=== PATIENT | female | born 1950 | race Caucasian/White ===

== ENCOUNTER 2019-06-05 00:31 | Day surgery (SDC) | payer OTHER, MEDICARE, SELFPAY ==
[2019-06-04 11:42] VITALS: BMI 28.8
[2019-06-05] VITALS (8 sets, daily range): BP systolic 109–155; BP diastolic 52–70; PULSE 62–82; RESP 16–17; TEMP 37.2–37.9; O2SAT 96–99; BMI 28.2
--- NOTE | 2019-06-05 09:50 | SUR.PREOP ---
ARRIVES AMBULATORY TO [facility] W/ AT SIDE FOR SCHEDULED LHC W/ DR. JOHNSON. ORIENTED TO ROOM AND PLAN, PROCEDURE. QUESTIONS ANSWERED. VOICED UNDERSTANDING. A&OX3, DENIES PAIN OR SOB. VS OBTAINED, IV STARTED, LABS COLLECTED AND SENT, CONSENT SIGNED, PULSES MARKED, SKIN PREP COMPLETED. WILL CONTINUE TO MONITOR.
[2019-06-05 10:06] LABS: Basophils Percent Auto 0.7 % (0.2-1.2); Eosinophils Absolute Auto 0.1 K/mm3 (0-0.3); Eosinophils Percent Auto 2.3 % (0-4.4); Hematocrit 41.2 % (37.0-47.0); Hemoglobin 13.2 g/dL (12.0-15.0); Immature Granulocyte Absolute 0.01 K/mm3 (0.00-0.031); Immature Granulocyte Percent A 0.2 % (0-0.5); Lymphocytes Absolute Auto 2.19 K/mm3 (0.9-3.2); Mean Corpuscular Hemoglobin 28.7 pg (26-34); Mean Corpuscular Volume 89.6 fl (80-100); Mean Platelet Volume 10.1 fl (7.4-10.4); Monocytes Absolute Auto 0.4 K/mm3 (0.1-0.6); Monocytes Percent Auto 7.3 % (2.6-8.5); Neutrophils Absolute Auto 2.8 K/mm3 (1.3-6.7); Neutrophils Percent Auto 50.5 % (45.5-73.1); Platelet Count Result 206 k/mm3 (150-375); Red Cell Distribution Width 13.2 % (11.5-14.5); White Blood Count 5.6 K/mm3 (4.5-10.0)
[2019-06-05 11:26] LABS: Blood Urea Nitrogen 15 mg/dL (7-17); Calcium 8.8 mg/dL (8.4-10.2); Carbon Dioxide 25 mmol/L (22-30); Chloride 104 mmol/L (98-107); Estimated CRCL calculation 110 ml/min; Estimated Glomerular Filt Rate > 60; Glucose 123 mg/dL (65-105); Potassium 4.1 mmol/L (3.4-5.0); Sodium 137 mmol/L (137-145)
--- NOTE | 2019-06-05 11:45 | WPDMODSED ---
Moderate Sedation Note-Pt Data Patient Data Allergies Allergy/AdvReac Type Severity Reaction Status Date / Time Sulfa (Sulfonamide Allergy Mild Rash Verified 12/06/17 02:42 Antibiotics) valdecoxib Allergy Unknown Unknown Verified 06/05/19 10:14 hydrocodone [From Vicodin] Allergy Unknown Verified 06/05/19 10:14 meperidine [From Demerol] Allergy Nausea Verified 06/05/19 10:31 tramadol Allergy Unknown Verified 06/05/19 10:14 perfume AdvReac Difficulty Verified 06/05/19 10:14 Breathing Home Medications Medication Instructions Recorded Confirmed Type albuterol sulfate 2 puff INHALATION QID PRN 06/04/19 06/04/19 History amlodipine-benazepril [Lotrel] 1 cap PO HS 06/04/19 06/04/19 History aspirin [Adult Low Dose Aspirin] 81 mg PO DAILY 06/04/19 06/04/19 History melatonin 5 mg PO HS PRN 06/04/19 06/04/19 History Current Medications: Active Medications Sodium Chloride (Normal Saline Iv) 500 mls @ 100 mls/hr IV CONT .Q5H [facility] Sedation/Anesthesia: No previous sedation/anesthesia problems (including family history). [facility] Family History Family History (Updated 06/04/19 @ 15:02 by Niurka Bowles RN) Mother Diabetes mellitus CAD (coronary artery disease) Cerebrovascular accident Hypertension Father CAD (coronary artery disease) Colon cancer Sibling Diabetes mellitus Hypertension Social History Social History Gender identity (if verbalized by the patient): Female Mod Sed Physical Exam Physical Exam Pre Procedural Exam: Normal: Airway Hours since solid foods: 10 Hours since liquid intake: 10 Internal Medicine - PN: Obj Da Vital Signs Vital Signs: Vital Signs - 24 hr 06/05/19 10:10 Temperature 37.2 C Pulse Rate 65 Respiratory Rate 17 Blood Pressure 155/70 H Pulse Oximetry 97 Meds/Results Medications: Active Medications Generic Name Dose Route Start Last Admin Trade Name Freq PRN Reason Stop Dose Admin Sodium Chloride 500 mls @ 100 mls/hr 06/05/19 06:15 Normal Saline Iv IV CONT .Q5H [facility] Labs CBC & Chem 7: 06/05/19 09:58 06/05/19 11:06 Labs: Laboratory Results - last 24 hr 06/05/19 06/05/19 09:58 11:06 WBC 5.6 RBC 4.60 Hgb 13.2 Hct 41.2 MCV 89.6 MCH 28.7 MCHC 32.0 RDW 13.2 Plt Count 206 MPV 10.1 Immature Gran % (Auto) 0.2 Neut % (Auto) 50.5 Lymph % (Auto) 39.0 [place] % (Auto) 7.3 Eos % (Auto) 2.3 Baso % (Auto) 0.7 Lymph # (Auto) 2.19 [place] # (Auto) 0.4 Eos # (Auto) 0.1 Baso # (Auto) 0.0 Abs Immat Gran (auto) 0.01 Absolute Neuts (auto) 2.8 Absolute Nucleated RBC 0.0 Nucleated RBC % 0.0 Sodium 137 Potassium 4.1 Chloride 104 Carbon Dioxide 25 BUN 15 Creatinine 0.50 L Estim Creat Clear Calc 110 Estimated GFR > 60 Glucose 123 H Calcium 8.8 ASA Classification/Sedation ASA Classification/Sedation Risks: Risks, benefits and alternatives explained and patient/family accepted plan for sedation. Patient re-evaluated immediately prior to sedation.
--- NOTE | 2019-06-05 12:10 | WPDCARDPROC ---
Cardiac Cath Procedure Note Date of procedure:: 06/05/19 Performing physician:: Alvino Husain MD Indication:: chest pain Brief clinical history:: 68-year-old female with hypertension ,dyslipidemia was referred by Dr. Miranda for coronary angiogram in the setting of chest discomfort. Patient had pharmacological MPI on 12/25/2018 which reportedly showed EKG findings suggestive of ischemia with normal imaging and normal LVEF. Benefits and risks of the procedure were discussed with patient and informed consent was taken for the procedure. Procedure Procedure note:: LEFT HEART CATHETERIZATION AND CORONARY ANGIOGRAM REPORT PROCEDURES PERFORMED: 1. Left heart catheterization- Selective left and right coronary angiogram; left ventriculogram and hemodynamic assessment 2. Selective right common femoral angiogram and deployment of Angio-Seal hemostatic device 3. Moderate sedation-CPT code 86159 MODERATE SEDATION: Midazolam 2 mg; fentanyl 50 mcg; Start time 1155 , Stop time 1207 ; Total [id number] time 12 minutes; Martha Rene RN was trained observer for moderate sedation. ACCESS SITE: Right common femoral artery PROCEDURE NOTE: After obtaining informed consent, patient was brought to catheterization lab and prepped and draped in a usual sterile manner. After local anesthesia with lidocaine, right common femoral artery access was taken with micropuncture needle followed by insertion of a 6 American sheath. Selective left and right coronary angiogram was performed using 5 American JL4 and JR4 catheters respectively. Orthogonal views were taken. Next, a 5 American JR4 catheter was advanced in the LV cavity and was flushed with normal saline. LV pressure measurement was performed. After this, left ventriculogram was performed using minimal dye as low pressures. The catheter was flushed again, and gradient across the aortic valve was measured on the pullback of the catheter. Finally, selective right common femoral angiogram was performed followed by successful deployment of Angio-Seal vascular closure device. Patient tolerated procedure well without any immediate procedure related complications. of note, patient was hypertensive during the procedure and received 10 mg of IV hydralazine. FINDINGS: LEFT MAIN CORONARY:Main large caliber, short vessel, no significant focal stenosis seen. The vessel bifurcates into tortuous LAD and left circumflex branches. LEFT ANTERIOR DESCENDING ARTERY: The LAD is a large caliber, tortuous vessel with minor plaque at the ostium. The vessel tapers distally and reaches the LV apex. No significant focal stenosis seen. Diagonal branch is a small to medium-sized vessel without significant focal stenosis. LEFT CIRCUMFLEX ARTERY: The left circumflex artery is a large-sized vessel, tortuous, and essentially continues as OM branch without significant focal stenosis. RIGHT CORONARY ARTERY: The RCA is a very large caliber , Tortuous, dominant vessel, gives rise to PD and PLV branches without significant focal stenosis. LEFT VENTRICULOGRAM: Preserved LV systolic function, ejection fraction more than 70%. HEMODYNAMIC ASSESSMENT: Opening pressure 133/92 mmHg , closing pressure 167/61 mmHg , LVEDP 24 , no significant gradient across aortic valve on the pullback of pigtail catheter. RIGHT COMMON FEMORAL ARTERY: Patent CONCLUSIONS: 1. No significant obstructive CAD; tortuous coronary arteries. 2. Preserved LV systolic function, ejection fraction more than 70%; LVEDP elevated at 24 mmHg. 3. Systemic hypertension PLAN/RECOMMENDATIONS: optimal medical treatment and risk factor modification including optimal blood pressure control. Follow up with Dr. Miranda. This document was completed by using [employer] Fluency Direct speech recognition software, therefore, director of distance learning variances may occur.
== END 2019-06-05 15:45 | disposition home or self-care (01) ==
PROVIDERS: Internal Medicine Gastroenterology; PCP Family Medicine; Visit Provider Internal Medicine Cardiovascular Disease
PROC: 4A023N7 Measurement of Cardiac Sampling and Pressure, Left Heart, Percutaneous Approach (ICD-10-PCS; CPT 93452; principal; 2019-06-05 11:30)
PROC: 0DJ08ZZ Inspection of Upper Intestinal Tract, Via Natural or Artificial Opening Endoscopic (ICD-10-PCS; CPT 43235; principal; 2020-03-26 22:00)
DX: R93.1 Abnormal findings on diagnostic imaging of heart and coronary circulation (principal); R07.9 Chest pain, unspecified; I10 Essential (primary) hypertension; J45.909 Unspecified asthma, uncomplicated; Z79.82 Long term (current) use of aspirin; Z87.891 Personal history of nicotine dependence
CPT/HCPCS: 36415; 80048; 85025; 93458; C1760; C1887; C1894; G0269; J0360; J1644; J2250; J3010; J7040

== ENCOUNTER 2020-03-26 18:24 | Day surgery (SDC) | payer OTHER, MEDICARE, SELFPAY ==
[2020-03-26] VITALS (26 sets, daily range): BP systolic 69–185; BP diastolic 18–88; PULSE 68–90; RESP 16–25; TEMP 36.3–36.9; O2SAT 89–100
--- NOTE | ~2020-03-26 | XR_ITS ---
EXAMINATION: XR chest 2V DATE: 03/26/2020 19:01 INDICATION: Phleboliths in throat, unable to swallow and difficulty breathing. TECHNIQUE: PA and lateral views of the chest were obtained. COMPARISON: Chest radiograph dated 07/24/2016 FINDINGS: Unchanged symmetric mild hyperexpansion of the lungs. Again seen are multiple small calcified nodules in the right lower lung zone consistent with old granulomatous disease. No other airspace opacities, pulmonary edema, pleural effusion or pneumothorax. The cardiomediastinal silhouette is normal. Mild thoracic spondylosis. IMPRESSION: 1. No acute cardiopulmonary disease. Reviewed, dictated and finalized at location . F MEDICAL PHYSICIST
--- NOTE | 2020-03-26 18:53 | ED.SKABFB ---
HPI - Skin/Abscess/Foreign Bdy General Chief complaint: Skin/Abscess/Foreign Body <Leticia Delong PA-C - Last Filed: 03/26/20 20:23> Stated complaint: FB GI <YURIDIA Milligan Last Filed: 03/26/20 20:23> Time Seen by Provider: 03/26/20 18:32 <YURIDIA Milligan Last Filed: 03/26/20 20:23> Source: patient <YURIDIA Milligan Last Filed: 03/26/20 20:23> Mode of arrival: ambulatory <YURIDIA Milligan Last Filed: 03/26/20 20:23> Limitations: no limitations <YURIDIA Milligan Last Filed: 03/26/20 20:23> History of Present Illness HPI narrative: This is a 69 year old female that presents to the ER for food impaction. Reports she was eating brussel sprouts and chicken. Reports she swallowed a piece of chicken and it felt like it got stuck in her esophagus. Reports this was about 1 hour ago. Reports since she has been vomiting and spitting up her saliva. She has not tried to eat or drink anything since. Reports some mid sternal discomfort that feels like gas. Denies history of similar occurrences. <Leticia Delong PA-C - Last Filed: 03/26/20 20:23> Related Data Home medications: Home Medications Medication Instructions Recorded Confirmed albuterol sulfate 2 puff INHALATION QID PRN 06/04/19 06/04/19 amlodipine-benazepril [Lotrel] 1 cap PO HS 06/04/19 06/04/19 aspirin [Adult Low Dose Aspirin] 81 mg PO DAILY 06/04/19 06/04/19 melatonin 5 mg PO HS PRN 06/04/19 06/04/19 <YURIDIA Milligan Last Filed: 03/26/20 20:23> Allergies/Adverse reactions: Allergies Allergy/AdvReac Type Severity Reaction Status Date / Time Sulfa (Sulfonamide Allergy Mild Rash Verified 12/06/17 02:42 Antibiotics) valdecoxib Allergy Unknown Unknown Verified 06/05/19 10:14 hydrocodone [From Vicodin] Allergy Unknown Verified 06/05/19 10:14 meperidine [From Demerol] Allergy Nausea Verified 06/05/19 10:31 tramadol Allergy Unknown Verified 06/05/19 10:14 perfume AdvReac Difficulty Verified 06/05/19 10:14 Breathing <Leticia Delong PA-C - Last Filed: 03/26/20 20:23> Review of Systems Review of Systems: Narrative: CONSTITUTIONAL: Denies fever CARDIOVASCULAR: Reports chest pain RESPIRATORY: Denies dyspnea. GASTROINTESTINAL: Reports nausea, vomiting <Leticia Delong PA-C - Last Filed: 03/26/20 20:23> All systems reviewed & are unremarkable except as noted in HPI and below <Leticia Delong PA-C - Last Filed: 03/26/20 20:23> PMFSH Past Medical History Medical History: Medical History (Updated 03/26/20 @ 19:51 by Leticia Delong PA-C) History of gastroesophageal reflux (GERD) History of hypertension <Leticia Delong PA-C - Last Filed: 03/26/20 20:23> Surgical History Surgical History: Surgical History (Updated 03/26/20 @ 18:58 by Leticia Delong PA-C) History of cardiac catheterization History of colonoscopy <Leticia Delong PA-C - Last Filed: 03/26/20 20:23> Family History Family History: Family History (Updated 06/04/19 @ 15:02 by Niurka Bowles RN) Mother Diabetes mellitus CAD (coronary artery disease) Cerebrovascular accident Hypertension Father CAD (coronary artery disease) Colon cancer Sibling Diabetes mellitus Hypertension <Leticia Delong PA-C - Last Filed: 03/26/20 20:23> Social History Social History: Social History Gender identity (if verbalized by the patient): Female <Leticia Delong PA-C - Last Filed: 03/26/20 20:23> Exam Narrative: Exam Narrative: GENERAL: Uncomfortable, well-nourished, actively belching HEAD: Normocephalic, atraumatic. EYES: EOMI. ENT: Mucous membranes moist. Oropharynx without tonsillar hypertrophy exudate or other lesions. NECK: Supple. No adenopathy or masses. CHEST: Clear to auscultation. No respiratory distress. No wheezes rales or rhonchi HEART: Regular rate and rhythm. No murmur heard. Normal peripheral pulses. ABDOMEN: Soft, nontender, nond
[2020-03-26 19:02] LABS: Basophils Percent Auto 0.5 % (0.2-1.2); Eosinophils Absolute Auto 0.2 K/mm3 (0-0.3); Eosinophils Percent Auto 2.6 % (0-4.4); Hemoglobin 10.6 g/dL (12.0-15.0); Immature Granulocyte Absolute 0.01 K/mm3 (0.00-0.031); Immature Granulocyte Percent A 0.2 % (0-0.5); Lymphocytes Absolute Auto 1.68 K/mm3 (0.9-3.2); Lymphocytes Percent Auto 27.1 % (18.3-44.2); Mean Corpuscular HGB Conc 33.1 g/dl (32-36); Mean Corpuscular Hemoglobin 29.7 pg (26-34); Mean Corpuscular Volume 89.6 fl (80-100); Mean Platelet Volume 9.6 fl (7.4-10.4); Monocytes Absolute Auto 0.4 K/mm3 (0.1-0.6); Monocytes Percent Auto 6.6 % (2.6-8.5); Neutrophils Absolute Auto 3.9 K/mm3 (1.3-6.7); Platelet Count Result 170 k/mm3 (150-375); Red Blood Count 3.57 M/mm3 (4.2-5.4); White Blood Count 6.2 K/mm3 (4.5-10.0)
[2020-03-26] MEDS: GLUCAGON FOR INJ 1 MG VIAL IM (19:06)
[2020-03-26] MEDS: NITROGLYCERIN SL 0.4 MG TABLET SUBLINGUAL (19:06)
[2020-03-26] MEDS: ONDANSETRON INJ 4 MG/2 ML VIAL IV PUSH (19:06)
[2020-03-26 19:15] LABS: Alanine Aminotransferase 20 U/L (4-35); Albumin Level 4.6 g/dL (3.5-5.1); Alkaline Phosphatase 82 U/L (38-126); Anion Gap 12 mmol/L (8-16); Aspartate Amino Transferase 23 U/L (14-36); Bilirubin,Total 0.7 mg/dL (0.2-1.3); Blood Urea Nitrogen 19 mg/dL (7-17); Calcium 8.9 mg/dL (8.4-10.2); Carbon Dioxide 23 mmol/L (22-30); Chloride 104 mmol/L (98-107); Estimated CRCL calculation 81 ml/min; Estimated Glomerular Filt Rate > 60; Glucose 121 mg/dL (65-105); Sodium 139 mmol/L (137-145)
--- NOTE | 2020-03-26 19:22 | PC.NURSE ---
patient states no change in symptoms after meds. will discuss with provider. CXR resulted. waiting for further orders from provider.
--- NOTE | 2020-03-26 19:32 | PC.NURSE ---
provider gave patient a sprite as PO trial. will monitor.
--- NOTE | 2020-03-26 19:58 | PC.NURSE ---
patient to go to GI lab tonight for possible foreign body removal. patient is aware. patient is aware she is NPO. unable to swallow her saliva still. at bedside. on BP and O2 monitors. call light in reach.
--- NOTE | 2020-03-26 20:46 | PC.NURSE ---
waiting for GI lab. states she does have less chest discomfort. texting on phone. on BP and O2 monitor. spouse still here. denies needs. aware of current treatment plan.
--- NOTE | 2020-03-26 21:28 | WPDANESEPPF ---
Anes - Initial Pre Proc Eval Date/Time: 03/26/20 21:28 Pre Op Diagnosis: FB GI Patient Data Age: 69 Gender: F Height: 1.78 m Weight: 90.9 kg Last Vital Signs Temp 36.9 C 03/26/20 18:31 Pulse 85 03/26/20 18:31 Resp 24 H 03/26/20 18:31 BP 169/65 H 03/26/20 20:32 Pulse Ox 97 03/26/20 20:45 Allergies Allergy/AdvReac Type Severity Reaction Status Date / Time Sulfa (Sulfonamide Allergy Mild Rash Verified 12/06/17 02:42 Antibiotics) valdecoxib Allergy Unknown Unknown Verified 06/05/19 10:14 hydrocodone [From Vicodin] Allergy Unknown Verified 06/05/19 10:14 meperidine [From Demerol] Allergy Nausea Verified 06/05/19 10:31 tramadol Allergy Unknown Verified 06/05/19 10:14 perfume AdvReac Difficulty Verified 06/05/19 10:14 Breathing Home Medications Medication Instructions Recorded Confirmed Type albuterol sulfate 2 puff INHALATION QID PRN 06/04/19 06/04/19 History amlodipine-benazepril [Lotrel] 1 cap PO HS 06/04/19 06/04/19 History aspirin [Adult Low Dose Aspirin] 81 mg PO DAILY 06/04/19 06/04/19 History melatonin 5 mg PO HS PRN 06/04/19 06/04/19 History Laboratory Tests 03/26/20 03/26/20 18:52 18:52 WBC 6.2 K/mm3 K/mm3 (4.5-10.0) RBC 3.57 M/mm3 L M/mm3 (4.2-5.4) Hgb 10.6 g/dL L g/dL (12.0-15.0) Hct 32.0 % L % (37.0-47.0) MCV 89.6 fl fl (80-100) MCH 29.7 pg pg (26-34) MCHC 33.1 g/dl g/dl (32-36) RDW 13.0 % % (11.5-14.5) Plt Count 170 k/mm3 k/mm3 (150-375) MPV 9.6 fl fl (7.4-10.4) Immature Gran % (Auto) 0.2 % % (0-0.5) Neut % (Auto) 63.0 % % (45.5-73.1) Lymph % (Auto) 27.1 % % (18.3-44.2) Will % (Auto) 6.6 % % (2.6-8.5) Eos % (Auto) 2.6 % % (0-4.4) Baso % (Auto) 0.5 % % (0.2-1.2) Lymph # (Auto) 1.68 K/mm3 K/mm3 (0.9-3.2) Will # (Auto) 0.4 K/mm3 K/mm3 (0.1-0.6) Eos # (Auto) 0.2 K/mm3 K/mm3 (0-0.3) Baso # (Auto) 0.0 K/mm3 K/mm3 (0.0-0.1) Abs Immat Gran (auto) 0.01 K/mm3 K/mm3 (0.00-0.031) Absolute Neuts (auto) 3.9 K/mm3 K/mm3 (1.3-6.7) Absolute Nucleated RBC 0.0 K/mm3 K/mm3 (0.0-0.012) Nucleated RBC % 0.0 % % (0.0-0.2) Sodium 139 mmol/L mmol/L (137-145) Potassium 4.0 mmol/L mmol/L (3.4-5.0) Chloride 104 mmol/L mmol/L (98-107) Carbon Dioxide 23 mmol/L mmol/L (22-30) Anion Gap 12 mmol/L mmol/L (8-16) BUN 19 mg/dL H mg/dL (7-17) Creatinine 0.70 mg/dL mg/dL (0.7-1.0) Estim Creat Clear Calc 81 ml/min ml/min Estimated GFR > 60 (59 - ) Glucose 121 mg/dL H mg/dL (65-105) Calcium 8.9 mg/dL mg/dL (8.4-10.2) Total Bilirubin 0.7 mg/dL mg/dL (0.2-1.3) AST 23 U/L U/L (14-36) ALT 20 U/L U/L (4-35) Alkaline Phosphatase 82 U/L U/L (38-126) Total Protein 8.0 g/dL g/dL (6.3-8.2) Albumin 4.6 g/dL g/dL (3.5-5.1) Other Studies: cath 06/21: CONCLUSIONS: 1. No significant obstructive CAD; tortuous coronary arteries. 2. Preserved LV systolic function, ejection fraction more than 70%; LVEDP elevated at 24 mmHg. 3. Systemic hypertension Patient hx anesthesia problems: none Family hx anesthesia problems: none PMFSH Past Medical History Medical History (Updated 03/26/20 @ 21:30 by Robe Mae MD) Angina pectoris Anxiety Asthma Depression History of gastroesophageal reflux (GERD) History of hypertension HTN (hypertension) Hypercholesterolemia Osteoarthritis Surgical History Surgical History (Updated 03/26/20 @ 18:58 by Leticia Delong PA-C) History of cardiac catheterization History of colonoscopy Family History Family History (Updated 06/04/19 @ 15:02 by Niurka Bowles RN) Mother Diabetes mellitus CAD (coronary artery disease) Cerebrovascular accident Hypertension Father CAD (coronary artery disease) Co
--- NOTE | 2020-03-26 21:40 | PC.NURSE ---
GI lab here. patient released to their care. all belonging sent with .
--- NOTE | 2020-03-26 21:40 | PC.NURSE ---
report given to RN at GI lab. patient and spouse aware.
[2020-03-26] MEDS: LACTATED RINGERS 1,000 ML 150 ML IV CONT (21:50)
--- NOTE | 2020-03-26 22:12 | WPDGICN ---
Assessment and Plan Assessment and plan (1) Food impaction of esophagus: Qualifiers: Encounter type: initial encounter Qualified Code(s): T18.128A - Food in esophagus causing other injury, initial encounter Code(s): T18.128A - Food in esophagus causing other injury, initial encounter Status: Acute Assessment and Plan: Patient has a history of a food impaction this evening has ongoing dysphagia suggestive of esophageal narrowing. Her heartburn suggest underlying acid reflux disease. Currently now on no specific medications. Plan is for EGD. Further recommendations regarding treatment of anti-reflux measures will be given after endoscopy. (2) Dysphagia: Code(s): R13.10 - Dysphagia, unspecified Status: Acute (3) Heartburn: Code(s): R12 - Heartburn Status: Acute GI Consult Note Consult date/time: 03/26/20 22:12 HPI: Ximena Bess is a 69 year old femaleSeen in evaluation at the request of the ER. Patient was eating chicken dinner at 6:30 a.m. and was abruptly unable to eat or swallowing additional food. She presented to the emergency room with food impaction. Patient states she has had intermittent difficulty swallowing solids for some time. Food will hang up in the mid substernal chest. This typically happens with more solid foods compared to liquid foods. She does have an ongoing history of heartburn. She does not take specific medications aside from antacids. She also takes apple cider vinegar. Patient denies any bleeding or weight loss. 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 Review of Systems Review of Systems: All systems reviewed & are unremarkable except as noted in HPI and below [facility] Past Medical History Medical History (Updated 03/26/20 @ 22:14 by Himanshu Louise MD) Angina pectoris Anxiety Asthma Depression History of gastroesophageal reflux (GERD) History of hypertension HTN (hypertension) Hypercholesterolemia Osteoarthritis Surgical History Surgical History (Updated 03/26/20 @ 18:58 by Leticia Delong PA-C) History of cardiac catheterization History of colonoscopy Family History Family History (Updated 06/04/19 @ 15:02 by Niurka Bowles RN) Mother Diabetes mellitus CAD (coronary artery disease) Cerebrovascular accident Hypertension Father CAD (coronary artery disease) Colon cancer Sibling Diabetes mellitus Hypertension Social History Social History Gender identity (if verbalized by the patient): Female Meds Home Medications and Allergies Home Medications Medication Instructions Recorded Confirmed Type albuterol sulfate 2 puff INHALATION QID PRN 06/04/19 06/04/19 History amlodipine-benazepril [Lotrel] 1 cap PO HS 06/04/19 06/04/19 History aspirin [Adult Low Dose Aspirin] 81 mg PO DAILY 06/04/19 06/04/19 History melatonin 5 mg PO HS PRN 06/04/19 06/04/19 History Allergies Allergy/AdvReac Type Severity Reaction Status Date / Time Sulfa (Sulfonamide Allergy Mild Rash Verified 03/26/20 21:50 Antibiotics) valdecoxib Allergy Unknown Unknown Verified 03/26/20 21:50 hydrocodone [From Vicodin] Allergy Unknown Verified 03/26/20 21:50 meperidine [From Demerol] Allergy Nausea Verified 03/26/20 21:50 tramadol Allergy Unknown Verified 03/26/20 21:50 perfume AdvReac Difficulty Verified 03/26/20 21:50 Breathing Vital Signs Vital Signs - 24 hr 03/26/20 18:31 03/26/20 18:44 03/26/20 18:45 Temperature 98.5 F Pulse Rate 85 Respiratory Rate 24 H Blood Pressure 173/88 H Pulse Oximetry 100 93 100 03/26/20 18:53 03/26/20 19:00 03/26/20 19:04 Temperature Pulse Rate Respiratory Rate Blood Pressure 165/69 H 162/64 H Pulse Oximetry 99 99 99 03/26/20 19:15 03/26/20 19:17 03/26/20 19:18 Temperature Pulse Rate Respiratory Rate Blood Pressure 141/57 H Pulse Oximetry 97 97 98 03/26/20 19:30 03/26/20 19:31 03/26/20 19
--- NOTE | 2020-03-26 23:17 | PC.NURSE ---
GI lab returned pt. ED and should have discharged from GI lab. Per GI RN, pt. has discharge instructions from GI lab and has been fully recovered. IV removed and pt. to car with belongings per W/C with family. Pt. steady gait, skin signs and resp wnl. Changes positions without difficulty.
== END 2020-03-26 23:00 | disposition home or self-care (01) ==
LOC: ANHED 20:23 → ANHENDO 22:38
PROVIDERS: Physician Assistant; Emergency Provider Emergency Medicine; PCP Family Medicine; Visit Provider Internal Medicine Gastroenterology
PROC: 0DJ08ZZ Inspection of Upper Intestinal Tract, Via Natural or Artificial Opening Endoscopic (ICD-10-PCS; CPT 43235; principal; 2020-03-26 22:00)
DX: K22.2 Esophageal obstruction (principal); K44.9 Diaphragmatic hernia without obstruction or gangrene; K21.00 Gastro-esophageal reflux disease with esophagitis, without bleeding; I10 Essential (primary) hypertension; Z79.82 Long term (current) use of aspirin; J45.909 Unspecified asthma, uncomplicated; E78.00 Pure hypercholesterolemia, unspecified; F41.8 Other specified anxiety disorders
CPT/HCPCS: 43450; 43235; 36415; 71046; 80053; 85025; 96372; 96374; 99285; A9270; J1610; J2405; J2704; J7120

== ENCOUNTER 2021-05-04 01:47 | Emergency (ER) | payer OTHER, MEDICARE, SELFPAY ==
[2021-05-04] VITALS (12 sets, daily range): BP systolic 138–225; BP diastolic 53–87; PULSE 64–84; RESP 15–23; TEMP 36.4–36.6; O2SAT 96–100
--- NOTE | ~2021-05-04 | XR_ITS ---
EXAMINATION: XR chest 2V DATE: 05/04/2021 02:13 INDICATION: Palpitations. Tachycardia. TECHNIQUE: PA and lateral views of the chest were obtained. COMPARISON: Chest radiograph dated 03/26/2020 FINDINGS: Multiple small calcified nodules in the lateral right lower lung zone consistent with old granulomato us disease. No other airspace opacities, pulmonary edema, pleural effusion or pneumothorax. The cardi omediastinal silhouette is normal. Moderate thoracic spondylosis. IMPRESSION: 1. No acute cardiopulmonary disease. Reviewed, dictated and finalized at location B. 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
--- NOTE | 2021-05-04 01:48 | ECG_ITS ---
Measurements Intervals [place] Rate: 72 P: 46 DC: 124 QRS: 61 QRSD: 93 T: 57 QT: 389 QTc: 428 Interpretive Statements SINUS RHYTHM ATRIAL PREMATURE COMPLEX BASELINE ARTIFACT- I, III, AVL BORDERLINE ECG Electronically Signed On 05-04-2021 6:20:46 [employer] by Maverick Steen D.O.
[2021-05-04 02:09] LABS: Basophils Percent Auto 0.6 % (0.2-1.2); Eosinophils Absolute Auto 0.1 K/mm3 (0-0.3); Eosinophils Percent Auto 2.5 % (0-4.4); Hematocrit 36.6 % (37.0-47.0); Hemoglobin 11.9 g/dL (12.0-15.0); Immature Granulocyte Absolute 0.01 K/mm3 (0.00-0.031); Immature Granulocyte Percent A 0.2 % (0-0.5); Lymphocytes Absolute Auto 1.86 K/mm3 (0.9-3.2); Lymphocytes Percent Auto 36.3 % (18.3-44.2); Mean Corpuscular HGB Conc 32.5 g/dl (32-36); Mean Corpuscular Hemoglobin 29.5 pg (26-34); Mean Corpuscular Volume 90.8 fl (80-100); Mean Platelet Volume 9.3 fl (7.4-10.4); Monocytes Absolute Auto 0.5 K/mm3 (0.1-0.6); Monocytes Percent Auto 8.8 % (2.6-8.5); Neutrophils Absolute Auto 2.7 K/mm3 (1.3-6.7); Neutrophils Percent Auto 51.6 % (45.5-73.1); Platelet Count Result 195 k/mm3 (150-375); Red Blood Count 4.03 M/mm3 (4.2-5.4); Red Cell Distribution Width 13.4 % (11.5-14.5); White Blood Count 5.1 K/mm3 (4.5-10.0)
[2021-05-04 02:22] LABS: Alanine Aminotransferase 15 U/L (4-35); Albumin Level 4.3 g/dL (3.5-5.1); Alkaline Phosphatase 91 U/L (38-126); Anion Gap 8 mmol/L (8-16); Aspartate Amino Transferase 19 U/L (14-36); Bilirubin,Total 0.4 mg/dL (0.2-1.3); Blood Urea Nitrogen 10 mg/dL (7-17); Calcium 8.8 mg/dL (8.4-10.2); Carbon Dioxide 26 mmol/L (22-30); Chloride 106 mmol/L (98-107); Estimated Glomerular Filt Rate > 60; Glucose 117 mg/dL (65-110); Lipase 44 U/L (23-300); Potassium 3.5 mmol/L (3.4-5.0); Sodium 140 mmol/L (137-145)
[2021-05-04 02:31] LABS: INR 0.9; Prothrombin Time 12.2 Seconds (11.1-14.7)
[2021-05-04 02:34] LABS: Troponin I < 0.012 ng/mL (0.000-0.034)
--- NOTE | 2021-05-04 03:21 | PC.NURSE ---
Pt ambulatory to ED c/o 2 episodes of palpitations today that lasted less than a minute each time, NOT associated with any chest pain or pressure. reports she felt like her heart was pounding and she was able to capture the EKG on her apple watch and her hr was 150 the first time and 194 the second time. Denies prior hx of irregular heartbeat. Currently NSR on pvc monitor.
--- NOTE | 2021-05-04 03:39 | ED.GENADULT ---
HPI - General Adult General Chief complaint: Arrhythmia/Palpitations Stated complaint: Rapid heart rate, palpitations. Time Seen by Provider: 05/04/21 03:19 History of Present Illness HPI narrative: 70-year-old female with history of heart palpitations presents to the emergency department for evaluation of heart palpitations/rapid heart rate that was detected by her apple watch at home. Patient states that she has had a number of episodes today where she felt she had a racing heart rate. Patient was able to capture some of these events on her iWatch. Patient states that the episodes have been multiple times today and only lasted 1 to 2 minutes and they will resolve spontaneously. Patient states the only symptom that she had was the sensation of the palpitation. Patient denied any associated lightheaded dizziness chest pain or shortness of breath with the episode. Patient has had extensive cardiac work-up in the past for when she was having chest pain. Patient states that she did have a recent stress and Angiocath that was negative. Patient has no current stents and does have follow-up with cardiology, Dr. Miranda. Patient denies any change in medications. Patient states that she actually had less caffeine today than she normally does. Patient states that she has been eating and drinking normally. Patient did take a THC/CBD gummy prior to arrival. Related Data Home Medications Medication Instructions Recorded Confirmed albuterol sulfate 2 puff INHALATION QID PRN 06/04/19 06/04/19 amlodipine-benazepril [Lotrel] 1 cap PO HS 06/04/19 06/04/19 aspirin [Adult Low Dose Aspirin] 81 mg PO DAILY 06/04/19 06/04/19 melatonin 5 mg PO HS PRN 06/04/19 06/04/19 Allergies Allergy/AdvReac Type Severity Reaction Status Date / Time Sulfa (Sulfonamide Allergy Mild Rash Verified 05/04/21 02:27 Antibiotics) valdecoxib Allergy Unknown Unknown Verified 05/04/21 02:27 hydrocodone [From Vicodin] Allergy Unknown Verified 05/04/21 02:27 meperidine [From Demerol] Allergy Nausea Verified 05/04/21 02:27 tramadol Allergy Unknown Verified 05/04/21 02:27 perfume AdvReac Mild Difficulty Verified 05/04/21 02:27 Breathing Review of Systems Review of Systems: All systems reviewed & are unremarkable except as noted in HPI and below Constitutional: Constitutional: Reports no additional constitutional complaints Eyes: Eyes: Reports no additional eye complaints ENT: Reports system reviewed and no additional complaints, except as documented Cardiovascular: Cardiovascular: Reports no additional cardiovascular complaints Respiratory: Respiratory: Reports no additional respiratory complaints Gastrointestinal: Gastrointestinal: Reports no additional gastrointestinal complaints Musculoskeletal: Musculoskeletal: Reports no additional musculoskeletal complaints Integumentary/Breasts: Skin/Breast: Reports system reviewed and no additional complaints, except as docu Neurologic: Reports system reviewed and no additional complaints, except as documented Psychiatric: Psychiatric: Reports no additional psychiatric complaints Endocrine: Endocrine: Reports no additional endocrine complaints Hematologic/Lymphatic: Hematologic/Lymphatic: Reports no additional hematologic/lymphatic complaints Allergic/Immunologic: Allergic/Immunologic: Reports no additional allergic/immunologic complaints [facility] Past Medical History Medical History (Updated 05/05/21 @ 00:00 by Saw Devlin) Angina pectoris Anxiety Asthma Depression History of gastroesophageal reflux (GERD) History of hypertension HTN (hypertension) Hypercholesterolemia Osteoarthritis Surgical History Surgical History (Updated 03/26/20 @ 18:58 by Leticia Delong PA-C) History of cardiac catheterization History of colonoscopy Family History Family History (Updated 06/04/19 @ 15:02 by Niurka Bowles RN) Mother Diabetes mellitus CAD (coronary artery disease) Cerebrovascular
[2021-05-04 05:16] LABS: Troponin I 0.013 ng/mL (0.000-0.034)
== END 2021-05-04 05:53 | disposition home or self-care (01) ==
PROVIDERS: Emergency Provider Emergency Medicine; PCP Family Medicine
DX: I47.1 Supraventricular tachycardia (principal); J45.909 Unspecified asthma, uncomplicated; I10 Essential (primary) hypertension; E78.00 Pure hypercholesterolemia, unspecified; M19.90 Unspecified osteoarthritis, unspecified site; K21.9 Gastro-esophageal reflux disease without esophagitis; Z79.82 Long term (current) use of aspirin; I49.1 Atrial premature depolarization
CPT/HCPCS: 36415; 71046; 80053; 83690; 84484; 85025; 85610; 85730; 93005; 99284

== ENCOUNTER 2022-01-27 21:11 | Emergency (ER) | payer OTHER, MEDICARE, SELFPAY ==
[2022-01-27 21:12] VITALS: BP 146/81; PULSE 127; RESP 16; O2SAT 94
--- NOTE | 2022-01-27 21:12 | ECG_ITS ---
Measurements Intervals [place] Rate: 120 P: MI: 0 QRS: 57 QRSD: 92 T: 30 QT: 316 QTc: 446 Interpretive Statements ATRIAL FIBRILLATION WITH RAPID VENTRICULAR RESPONSE NONSPECIFIC ST & T-WAVE ABNORMALITY- DIFFUSE LEADS BASELINE ARTIFACT- I, II, III, AVR, AVL ABNORMAL ECG COMPARED TO ECG 05/04/2021 01:57:09 ATRIAL FIBRILLATION NOW PRESENT Electronically Signed On 01-28-2022 6:36:13 CDT by Maverick Steen D.O.
--- NOTE | 2022-01-27 21:20 | ECG_ITS ---
Measurements Intervals [place] Rate: 84 P: 50 HI: 134 QRS: 44 QRSD: 95 T: 56 QT: 367 QTc: 435 Interpretive Statements SINUS RHYTHM BASELINE ARTIFACT NONSPECIFIC ST AND T-WAVE ABNORMALITY BORDERLINE ECG COMPARED TO ECG 01/27/2022 21:17:22 SINUS RHYTHM HAS REPLACED ATRIAL FIBRILLATION Electronically Signed On 02-02-2022 17:35:27 CDT by Pal Miranda M.D.
[2022-01-27 21:21] VITALS: BP 146/81; PULSE 80; RESP 12; TEMP 36.6; O2SAT 99
[2022-01-27 21:29] LABS: Basophils Absolute Auto 0.1 K/mm3 (0.0-0.1); Basophils Percent Auto 0.7 % (0.2-1.2); Eosinophils Absolute Auto 0.2 K/mm3 (0-0.3); Eosinophils Percent Auto 2.6 % (0-4.4); Hematocrit 40.3 % (37.0-47.0); Hemoglobin 13.2 g/dL (12.0-15.0); Immature Granulocyte Absolute 0.02 K/mm3 (0.00-0.031); Immature Granulocyte Percent A 0.3 % (0-0.5); Lymphocytes Absolute Auto 2.28 K/mm3 (0.9-3.2); Lymphocytes Percent Auto 30.8 % (18.3-44.2); Mean Corpuscular HGB Conc 32.8 g/dl (32-36); Mean Corpuscular Hemoglobin 29.9 pg (26-34); Mean Corpuscular Volume 91.4 fl (80-100); Mean Platelet Volume 10.2 fl (7.4-10.4); Monocytes Absolute Auto 0.4 K/mm3 (0.1-0.6); Monocytes Percent Auto 5.7 % (2.6-8.5); Neutrophils Absolute Auto 4.4 K/mm3 (1.3-6.7); Neutrophils Percent Auto 59.9 % (45.5-73.1); Platelet Count Result 238 k/mm3 (150-375); Red Blood Count 4.41 M/mm3 (4.2-5.4); White Blood Count 7.4 K/mm3 (4.5-10.0)
--- NOTE | 2022-01-27 21:30 | ED.GENADULT ---
HPI - General Adult General Chief complaint: Arrhythmia/Palpitations Stated complaint: AFIB RVR Time Seen by Provider: 01/27/22 21:12 History of Present Illness HPI narrative: 71-year-old female presented to the emergency department for evaluation of an episode of paroxysmal atrial fibrillation. Patient states that she was resting when she felt that her heart rate was increased. Patient noticed on her iWatch that her heart rate was in the 140s. Patient denied any associated chest pain or shortness of breath. Patient does take Xarelto for the patient states she is also on a medication to help control her heart rate but she is unaware of what that medication is. Patient does admit that she had a lot of caffeine today. Patient states she normally drinks multiple Dr. Peppers and sweet tea. Patient denies any alcohol consumption. Patient does have prior history of SVT and paroxysmal atrial fibrillation. Related Data Home Medications Medication Instructions Recorded Confirmed albuterol sulfate 90 mcg/actuation 2 puff inhalation QID PRN sob 06/04/19 06/04/19 aerosol inhaler amlodipine 10 mg-benazepril 20 mg 1 cap PO HS 06/04/19 06/04/19 capsule (Lotrel) aspirin 81 mg tablet,delayed 81 mg PO DAILY 06/04/19 06/04/19 release (Adult Low Dose Aspirin) melatonin 5 mg tablet 5 mg PO HS PRN insomnia 06/04/19 06/04/19 Allergies Allergy/AdvReac Type Severity Reaction Status Date / Time Sulfa (Sulfonamide Allergy Mild Rash Verified 01/27/22 21:11 Antibiotics) valdecoxib Allergy Unknown Unknown Verified 01/27/22 21:11 hydrocodone [From Vicodin] Allergy Unknown Verified 01/27/22 21:11 meperidine [From Demerol] Allergy Nausea Verified 01/27/22 21:11 tramadol Allergy Unknown Verified 01/27/22 21:11 perfume AdvReac Mild Difficulty Verified 01/27/22 21:11 Breathing Review of Systems Review of Systems: CONSTITUTIONAL: Denies fever, chills, or sweats. EYES: Denies visual changes, redness, or discharge. ENT: Denies rhinorrhea, congestion, sore throat, or otalgia. CARDIOVASCULAR: Heart palpitations RESPIRATORY: Denies cough or dyspnea. GASTROINTESTINAL: Denies abdominal pain, nausea, vomiting, or diarrhea. GENITOURINARY: Denies dysuria or hematuria. SKIN: Denies rash or itching. MUSCULOSKELETAL: Denies back pain, joint pain, or myalgia. NEUROLOGIC: Denies headache, numbness, or weakness. [facility] Past Medical History Medical History (Updated 01/28/22 @ 00:00 by Saw Devlin) Angina pectoris Anxiety Asthma Depression History of gastroesophageal reflux (GERD) History of hypertension HTN (hypertension) Hypercholesterolemia Osteoarthritis Surgical History Surgical History (Updated 03/26/20 @ 18:58 by Leticia Delong PA-C) History of cardiac catheterization History of colonoscopy Family History Family History (Updated 06/04/19 @ 15:02 by Niurka Bowles RN) Mother Diabetes mellitus CAD (coronary artery disease) Cerebrovascular accident Hypertension Father CAD (coronary artery disease) Colon cancer Sibling Diabetes mellitus Hypertension Social History Social History Gender identity (if verbalized by the patient): Female Exam Narrative: APPEARANCE: Well appearing, no pain, no distress, well-nourished. HEAD: normocephalic, atraumatic. EYES: PERRLA/EOMI, conjunctivae clear. NOSE: Normal no drainage EARS:TMS clear with good light reflex. THROAT: Pharynx clear, no exudate. NECK: Supple. No adenopathy, no masses. RESPIRATORY: Airway patent, respirations nonlabored. Clear to auscultation bilaterally, no rales, rhonchi, wheezing. CARDIOVASCULAR: None patient arrived she was in A. fib with RVR with heart rate in the 140s. During my examination patient heart rate improved to 70s and was normal sinus rhythm. ABDOMINAL: Soft, nontender, nondistended, normal bowel sounds MUSCULOSKELETAL: Moves all extremities. Strength/ROM intact, No edema, No calf tenderness. NEURO: Alert. Cranial n
[2022-01-27 21:35] VITALS: PULSE 73; RESP 16; O2SAT 99
[2022-01-27 21:41] LABS: Partial Thromboplastin Time 31.3 SECONDS (22.3-36.8); Prothrombin Time 13.1 Seconds (11.1-14.7)
[2022-01-27 21:50] VITALS: PULSE 68; RESP 16; O2SAT 97
[2022-01-27 22:00] VITALS: PULSE 69; RESP 21; O2SAT 100
[2022-01-27 22:06] LABS: Alanine Aminotransferase 22 U/L (6-35); Albumin Level 4.5 g/dL (3.5-5.1); Alkaline Phosphatase 82 U/L (38-126); Anion Gap 9 mmol/L (8-16); Aspartate Amino Transferase 22 U/L (14-36); Bilirubin,Total 0.5 mg/dL (0.2-1.3); Blood Urea Nitrogen 24 mg/dL (7-17); Calcium 8.9 mg/dL (8.4-10.2); Carbon Dioxide 25 mmol/L (22-30); Chloride 105 mmol/L (98-107); Estimated CRCL calculation 76 ml/min; Estimated Glomerular Filt Rate > 60; Glucose 145 mg/dL (65-110); Potassium 3.9 mmol/L (3.4-5.0); Sodium 139 mmol/L (137-145)
== END 2022-01-27 22:20 | disposition home or self-care (01) ==
PROVIDERS: Emergency Provider Emergency Medicine; PCP Family Medicine
DX: I48.0 Paroxysmal atrial fibrillation (principal); Z79.82 Long term (current) use of aspirin; Z79.01 Long term (current) use of anticoagulants; I20.9 Angina pectoris, unspecified; I10 Essential (primary) hypertension; E78.00 Pure hypercholesterolemia, unspecified; M19.90 Unspecified osteoarthritis, unspecified site
CPT/HCPCS: 36415; 80053; 85025; 85610; 85730; 93005; 99284

== ENCOUNTER 2023-09-05 17:48 | Emergency (ER) | payer MEDICARE, OTHER, SELFPAY ==
--- NOTE | ~2023-09-05 | XR_ITS ---
EXAM: XR hip RT min 2V DATE: 09/05/2023 18:35 HISTORY: Intermittent pain x2 months, constant pain x3 days . COMPARISON: None available. FINDINGS: Decreased mineralization. No fracture or dislocation. No lytic or blastic lesion. Lumbar d egenerative disc disease. Mild degenerative change in the pubic and cysts, SI joints, and right hip. No erosion or periosteal change. Soft tissues within normal limits. IMPRESSION: No acute osseous finding in the right hip. Reviewed, dictated and finalized at location K.
--- NOTE | 2023-09-05 17:58 | ED.GENADULT ---
HPI - General Adult General Chief complaint: Extremity Injury, Lower Stated complaint: Right Hip Pain Time Seen by Provider: 09/05/23 18:10 Source: patient, RN notes reviewed and old records reviewed Mode of arrival: ambulatory Limitations: no limitations History of Present Illness HPI narrative: 73-year-old female presents to the [facility] with complaints of right anterior and lateral hip pain. Patient presents using crutches currently. Patient states that since the end of June she has been moving, pain has been intermittent. Since Tuesday, 3 days ago pain has been pretty consistent. Worse with bending at the hip. No swelling noted. Water appearing bruising noted to the anterior portion. Positive pulse. Full range of motion of the knee and the ankle States that she has taken Tylenol Denies any trauma to the area Related Data Home Medications Medication Instructions Recorded Confirmed amlodipine 10 mg-benazepril 20 mg 1 cap PO HS 06/04/19 09/05/23 capsule (Lotrel) carvedilol 3.125 mg tablet (Coreg) 3.125 mg DIRECTED 09/05/23 09/05/23 omeprazole 20 mg capsule,delayed mg 09/05/23 release rivaroxaban 20 mg tablet (Xarelto) 20 mg DIRECTED 09/05/23 09/05/23 Allergies Allergy/AdvReac Type Severity Reaction Status Date / Time Sulfa (Sulfonamide Allergy Mild Rash Verified 01/27/22 21:11 Antibiotics) valdecoxib Allergy Unknown Unknown Verified 01/27/22 21:11 hydrocodone [From Vicodin] Allergy Unknown Verified 01/27/22 21:11 meperidine [From Demerol] Allergy Nausea Verified 01/27/22 21:11 tramadol Allergy Unknown Verified 01/27/22 21:11 perfume AdvReac Mild Difficulty Verified 01/27/22 21:11 Breathing Review of Systems Review of Systems: All systems reviewed & are unremarkable except as noted in HPI and below Constitutional: Constitutional: Reports no additional constitutional complaints Eyes: Eyes: Reports no additional eye complaints ENT: Reports system reviewed and no additional complaints, except as documented Cardiovascular: Cardiovascular: Reports no additional cardiovascular complaints, Denies chest pain and Denies dyspnea Respiratory: Respiratory: Reports no additional respiratory complaints, Denies chest congestion, Denies cough and Denies dyspnea Gastrointestinal: Gastrointestinal: Reports no additional gastrointestinal complaints, Denies abdominal pain, Denies nausea and Denies vomiting Musculoskeletal: Musculoskeletal: Reports as per HPI, Reports abnormal gait (Pain to the right hip with walking, using crutches), Reports arthralgias (Right hip), Denies joint swelling and Reports limited range of motion (Right hip) Integumentary/Breasts: Skin/Breast: Reports system reviewed and no additional complaints, except as docu Neurologic: Reports system reviewed and no additional complaints, except as documented Psychiatric: Psychiatric: Reports no additional psychiatric complaints Allergic/Immunologic: Allergic/Immunologic: Reports no additional allergic/immunologic complaints [facility] Past Medical History Medical History Angina pectoris Anxiety Asthma Depression History of gastroesophageal reflux (GERD) History of hypertension HTN (hypertension) Hypercholesterolemia Osteoarthritis Surgical History Surgical History History of cardiac catheterization History of colonoscopy Family History Family History Mother Diabetes mellitus CAD (coronary artery disease) Cerebrovascular accident Hypertension Father CAD (coronary artery disease) Colon cancer Sibling Diabetes mellitus Hypertension Social History Social History Gender identity (if verbalized by the patient): Female Comments At the time of my signature, I reviewed and agree with the nursing past
[2023-09-05 18:04] VITALS: BP 168/72; PULSE 62; RESP 14; TEMP 37.3; O2SAT 99
[2023-09-05 19:04] VITALS: BP 144/60
== END 2023-09-05 19:10 | disposition home or self-care (01) ==
PROVIDERS: Emergency Provider Nurse Practitioner; PCP Family Medicine
DX: M25.551 Pain in right hip (principal); F41.8 Other specified anxiety disorders; J45.909 Unspecified asthma, uncomplicated; I10 Essential (primary) hypertension; K21.9 Gastro-esophageal reflux disease without esophagitis; E78.00 Pure hypercholesterolemia, unspecified
CPT/HCPCS: 73502; 99213; G0463

== ENCOUNTER 2024-02-14 12:48 | Emergency (ER) | payer MEDICARE, OTHER, SELFPAY ==
--- NOTE | ~2024-02-14 | XR_ITS ---
XR shoulder RT min 2V Ordering provider: John Cee MD History: . FALL. PAIN, RT SHOULDER PAIN . Comparison: None. FINDINGS: BONES: No acute fracture or dislocation. JOINT SPACES: The acromioclavicular joint shows osteoarthritic changes. The glenohumeral joint is nor mal. SOFT TISSUES: Normal. IMPRESSION: No acute osseous abnormality right shoulder. Reviewed, dictated and finalized at location A.
--- NOTE | ~2024-02-14 | XR_ITS ---
XR hand LT min 3V Ordering provider: John Cee MD History: . fall, LT HAND BRUISING AND PAIN . Comparison: None. FINDINGS: BONES: No acute fracture or dislocation. JOINT SPACES: Osteoarthritic changes of the first carpometacarpal joint. SOFT TISSUES: Unremarkable. IMPRESSION: No acute osseous abnormality left hand. Reviewed, dictated and finalized at location A.
--- NOTE | ~2024-02-14 | XR_ITS ---
EXAMINATION: XR foot LT min 3V DATE: 02/14/2024 13:51 INDICATION: Left foot pain and swelling post fall TECHNIQUE: Dorsoplantar, two oblique and lateral views of the left foot were obtained. COMPARISON: None. FINDINGS: Diffuse osteopenia. Alignment is normal. No fracture. Mild polyarticular osteoarthritis at the left a nkle and multiple joints throughout the left foot. Moderate-sized plantar calcaneal spur. Mild soft t issue swelling dorsal to the navicular cuneiform articulation. IMPRESSION: 1. Mild polyarticular osteoarthritis at the left ankle and throughout the left foot. No acute osseous abnormality. Reviewed, dictated and finalized at location A.
--- NOTE | ~2024-02-14 | XR_ITS ---
XR chest 2V 02/14/2024 13:51 Indication: Chest pain after fall Procedure: 2 view chest Comparison: 05/04/2021 Findings: Cardiomegaly. No focal air space disease, pulmonary edema, pleural effusion or suspected pn eumothorax. There are calcified granulomas in the right lung base. If there is concern for rib fractu re, consider further evaluation with dedicated rib series. Impression: 1: No acute cardiopulmonary disease. Reviewed, dictated and finalized at location B. Impression: 1: No acute cardiopulmonary disease.
--- NOTE | ~2024-02-14 | XR_ITS ---
XR hand RT min 3V Ordering provider: John Cee MD History: . fall, PAIN BRUISING TO BILATERAL HANDS . Comparison: None. FINDINGS: BONES: Lucency is seen at the base of the fourth metacarpal bone which may be a nondisplaced fracture . Follow-up advised. JOINT SPACES: Narrowing of the distal interphalangeal joint of the second and third 20 dens. SOFT TISSUES: Normal. IMPRESSION: Lucency at the base of the fourth metacarpal bone which may be a fracture. Clinical correlation for t enderness and follow-up is advised. Reviewed, dictated and finalized at location A. IMPRESSION: Lucency at the base of the fourth metacarpal bone which may be a fracture. Clin ical correlation for tenderness and follow-up is advised.
[2024-02-14 13:05] VITALS: BP 208/76; PULSE 88; RESP 15; TEMP 36.8; O2SAT 99
[2024-02-14 13:08] VITALS: BP 208/76; PULSE 88; RESP 16; O2SAT 100
--- NOTE | 2024-02-14 13:09 | ECG_ITS ---
Test Date: 2024-02-14 13:15:35 Measurements Intervals [place] Rate: 53 P: 38 CT: 140 QRS: 56 QRSD: 96 T: 41 QT: 449 QTc: 423 Interpretive Statements SINUS BRADYCARDIA No previous ECG available for comparison Electronically Signed On 02-14-2024 14:37:34 CDT by Amanda Olivier M.D.
--- NOTE | 2024-02-14 14:41 | ED.FALL ---
HPI - Fall General Chief Complaint: Fall Stated Complaint: fall Time Seen by Provider: 02/14/24 12:53 Source: patient Mode of arrival: EMS Limitations: no limitations History of Present Illness HPI Narrative: 73-year-old with a history of AFib on Xarelto, hypertension was brought in by EMS with the complaints of falls. Patient states that she was walking her dog and she lost her balance and fell on of both hands. She denied any head and neck injuries. She states that she might have hit her chest. She denies any shortness of breath. MD complaint: fall Onset (ago): hour(s) (1) Fall from: standing Fall witnessed: yes, by bystander Place fall occurred: street Loss of consciousness: none Prolonged down time: no Symptoms prior to fall: none Context: tripped/slipped Location of injury: chest Location of injury - extremities: Left: foot and Right: shoulder and hand Quality: dull Associated symptoms (after fall): denies Related Data Home Medications Medication Instructions Recorded Confirmed amlodipine 10 mg-benazepril 20 mg 1 cap PO HS 06/04/19 09/05/23 capsule (Lotrel) carvedilol 3.125 mg tablet (Coreg) 3.125 mg DIRECTED 09/05/23 09/05/23 omeprazole 20 mg capsule,delayed mg 09/05/23 release rivaroxaban 20 mg tablet (Xarelto) 20 mg DIRECTED 09/05/23 09/05/23 Allergies Allergy/AdvReac Type Severity Reaction Status Date / Time Sulfa (Sulfonamide Allergy Mild Rash Verified 02/14/24 14:41 Antibiotics) valdecoxib Allergy Unknown Unknown Verified 02/14/24 14:41 hydrocodone [From Vicodin] Allergy Unknown Verified 02/14/24 14:41 meperidine [From Demerol] Allergy Nausea Verified 02/14/24 14:41 tramadol Allergy Unknown Verified 02/14/24 14:41 perfume AdvReac Mild Difficulty Verified 02/14/24 14:41 Breathing Review of Systems Review of Systems: All systems reviewed & are unremarkable except as noted in HPI and below Constitutional: Constitutional: Reports no additional constitutional complaints Eyes: Eyes: Reports no additional eye complaints ENT: Reports system reviewed and no additional complaints, except as documented Cardiovascular: Cardiovascular: Reports as per HPI Respiratory: Respiratory: Reports no additional respiratory complaints Musculoskeletal: Musculoskeletal: Reports as per HPI Integumentary/Breasts: Skin/Breast: Reports system reviewed and no additional complaints, except as docu Neurologic: Reports system reviewed and no additional complaints, except as documented PMFSH Past Medical History Medical History Angina pectoris Anxiety Asthma Depression History of gastroesophageal reflux (GERD) History of hypertension HTN (hypertension) Hypercholesterolemia Osteoarthritis Surgical History Surgical History History of cardiac catheterization History of colonoscopy Family History Family History Mother Diabetes mellitus CAD (coronary artery disease) Cerebrovascular accident Hypertension Father CAD (coronary artery disease) Colon cancer Sibling Diabetes mellitus Hypertension Social History Social History Gender identity (if verbalized by the patient): Female Exam Narrative: GENERAL: Well-appearing, well-nourished, and in no acute distress. HEAD: Normocephalic, atraumatic. EYES: PERRLA and EOMI. ENT: Nares clear, no rhinorrhea . NECK: Supple. CHEST: Clear to auscultation. No respiratory distress. HEART: Regular rate and rhythm. No murmur heard. Normal peripheral pulses. ABDOMEN: Soft, nontender, nondistended, normal active bowel sounds. EXTREMITIES: Normal range of motion. No edema. hematoma of the right hand and left hand , ,small hematoma on the left foot. SKIN: Warm, dry, no rash. NEURO: No focal deficits. Alert and oriented x3. PSYCH
[2024-02-14] MEDS: ACETAMINOPHEN 500 MG TABLET 1000 MG PO (15:36)
[2024-02-14 16:17] VITALS: BP 166/85; PULSE 56; RESP 15; O2SAT 100
== END 2024-02-14 16:23 | disposition home or self-care (01) ==
PROVIDERS: Emergency Provider Family Medicine; PCP Family Medicine
DX: S62.314A Displaced fracture of base of fourth metacarpal bone, right hand, initial encounter for closed fracture (principal); S90.32XA Contusion of left foot, initial encounter; F41.9 Anxiety disorder, unspecified; J45.909 Unspecified asthma, uncomplicated; F32.A Depression, unspecified; K21.9 Gastro-esophageal reflux disease without esophagitis; I10 Essential (primary) hypertension; E78.5 Hyperlipidemia, unspecified; M19.90 Unspecified osteoarthritis, unspecified site; W01.0XXA Fall on same level from slipping, tripping and stumbling without subsequent striking against object, initial encounter
CPT/HCPCS: 29125; 71046; 73030; 73130; 73630; 93005; 99284; A4565; A9270

== ENCOUNTER 2024-03-20 11:13 | Outpatient (CLI) | payer MEDICARE, OTHER, SELFPAY ==
--- NOTE | ~2024-03-20 | XR_ITS ---
XR hand RT min 3V Ordering provider: Concepción Rao MD History: . M79.641 f/u fracture from fall 1mo ago . Comparison: February 14, 2024. FINDINGS: BONES: Lucency seen at the base of the fourth metacarpal bone is again demonstrated. No change in ali gnment. Osteopenia of the bones. JOINT SPACES: Narrowing of the proximal and distal interphalangeal joints. SOFT TISSUES: Normal. IMPRESSION: No change from previous examination. Reviewed, dictated and finalized at location A. 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
== END 2024-03-20 11:14 | disposition home or self-care (01) ==
PROVIDERS: PCP Family Medicine; Visit Provider Plastic Surgery
DX: S62.314A Displaced fracture of base of fourth metacarpal bone, right hand, initial encounter for closed fracture (principal); W19.XXXA Unspecified fall, initial encounter
CPT/HCPCS: 73130

== ENCOUNTER 2024-04-05 09:46 | Outpatient (CLI) | payer MEDICARE, OTHER, SELFPAY ==
--- NOTE | ~2024-04-05 | MR_ITS ---
EXAMINATION: MR foot LT wo con DATE: 04/05/2024 10:32 INDICATION: Ligament injury, left foot. Left foot pain. TECHNIQUE: Magnetic resonance imaging (MRI) of the left foot was performed without intravenous contra st. COMPARISON: Left foot radiographs 02/14/2024 FINDINGS: Alignment is normal. There is a nondisplaced intra-articular fracture of base of first meta tarsal. There is a trabecular fracture of dorsal distal aspect of medial cuneiform. There is a nondis placed fracture of plantar base of second metatarsal with involvement of the attachment site of Lisfr anc ligament. There is mild osteoarthritis of first metatarsophalangeal joint and many of the interph alangeal joints and midfoot joints. There is severe osteoarthritis of the naviculocuneiform joints an d moderate osteoarthritis of fourth tarsometatarsal joint. The flexor and extensor tendons are normal . IMPRESSION: 1. Fractures of the bases of the first and second metatarsals and distal aspect of medial cuneiform. 2. Polyarticular osteoarthritis. Reviewed, dictated and finalized at location A. 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
== END 2024-04-05 09:47 | disposition home or self-care (01) ==
LOC: MICIMG 09:48
PROVIDERS: PCP Family Medicine; Visit Provider Podiatrist Foot & Ankle Surgery
DX: S92.315A Nondisplaced fracture of first metatarsal bone, left foot, initial encounter for closed fracture (principal); S92.325A Nondisplaced fracture of second metatarsal bone, left foot, initial encounter for closed fracture; M19.072 Primary osteoarthritis, left ankle and foot; X58.XXXA Exposure to other specified factors, initial encounter
CPT/HCPCS: 73718

== ENCOUNTER 2024-06-29 14:16 | Outpatient (CLI) | payer MEDICARE, OTHER, SELFPAY | END 2024-06-29 14:17 | disposition home or self-care (01) | PROVIDERS: PCP Family Medicine; Visit Provider Physician Assistant Surgical | DX: M18.0 Bilateral primary osteoarthritis of first carpometacarpal joints (principal); M19.90 Unspecified osteoarthritis, unspecified site | CPT/HCPCS: 73130 ==